=== PATIENT | female | born 1975 | race Caucasian/White ===

== ENCOUNTER 2023-12-14 19:42 | Emergency (ER) | payer BC ==
[~2023-12-14] VITALS: Ht 182.9 cm; Wt 86.9 kg
[2023-12-14 20:37] VITALS: BP 148/113; PULSE 74; RESP 16; TEMP 98.2; O2SAT 100
[2023-12-14 21:34] VITALS: O2SAT 97
[2023-12-14] MEDS: NACL 0.9% 1,000 ML IV ONE (21:56)
[2023-12-14 22:31] LABS: APPEARANCE,URINE CLEAR (CLEAR); BILIRUBIN,URINE NEGATIVE (NEGATIVE); BLOOD, URINE TRACE-I (NEGATIVE); COLOR,URINE YELLOW (YELLOW); LEUKOCYTE ESTERASE ,URINE NEGATIVE (NEGATIVE); NITRITE, URINE NEGATIVE (NEGATIVE); PH,URINE 6.5 (5.0-9.0); PROTEIN,URINE NEGATIVE (NEGATIVE); UGLUCOSE NEGATIVE (NEGATIVE); UROBILINOGEN,URINE 0.2 EU/dL (0.2 - 1)
[2023-12-14] MEDS: KETOROLAC 30 MG/ML VIAL IVP ONE (22:34)
[2023-12-14] MEDS: diphenhydrAMINE 50 MG/ML VIAL IVP ONE (23:42)
[2023-12-14] MEDS: METOCLOPRAMIDE 10 MG/2 ML INJ VIAL IVP ONE (23:42)
[2023-12-14 23:57] VITALS: O2SAT 97
[2023-12-14] MEDS: NACL 0.9% 500 ML IV ONE (23:59)
[2023-12-15 00:03] VITALS: BP 117/72; PULSE 73; RESP 18; TEMP 98.1; O2SAT 97
[2023-12-15 00:45] LABS: BASOPHILS # (AUTO) 0.1 K/uL (0.00-0.22); BASOPHILS % (AUTO) 0.6 % (0.0-2.0); EOSINOPHILS # (AUTO) 0.1 K/uL (0-0.4); EOSINOPHILS % (AUTO) 1.4 % (0.0-4.0); HEMOGLOBIN 14.6 g/dL (12.0-16.0); LYMPHOCYTES % (AUTO) 20.2 % (20.5-51.1); MEAN CORPUSCULAR HEMOGLOBIN 30 pg (27-31); MEAN CORPUSCULAR HGB CONC 34 g/dL (33-37); MEAN CORPUSCULAR VOLUME 88.3 fL (80-94); MONOCYTES # (AUTO) 0.5 K/uL (0.8-1.0); MONOCYTES % (AUTO) 4.5 % (1.7-9.3); NEUTROPHILS # (AUTO) 7.3 K/uL (1.8-7.7); NEUTROPHILS % (AUTO) 73.3 % (42.2-75.2); PLATELET COUNT (AUTO) 285 K/uL (140-450); RED BLOOD CELL COUNT(AUTO) 4.88 MIL/uL (4.20-5.40); RED CELL DISTRIBUTION WIDTH 12.9 % (11.6-13.7)
[2023-12-15 00:56] LABS: ANION GAP 11.7 (8-16); CALCIUM 9.6 mg/dL (8.5-10.1); CARBON DIOXIDE 30.3 mmol/L (21-32); CREATININE 0.7 mg/dL (0.6-1.3)
[2023-12-15 01:02] LABS: ALANINE AMINOTRANSFERASE 21 U/L (12-78); ALKALINE PHOSPHATASE 80 U/L (50-136); ASPARTATE AMINOTRANSFERASE 19 U/L (15-37); BILIRUBIN,DIRECT 0.1 mg/dL (0.0-0.3); TOTAL BILIRUBIN 1.2 mg/dL (0.0-1.0); TOTAL PROTEIN, SERUM 7.1 g/dL (6.4-8.2)
[2023-12-15] MEDS ORDERED: NAPR-337 PO (01:43)
== END 2023-12-15 01:54 | disposition home or self-care (01) ==
LOC: MED 19:42
DX: G44.209 Tension-type headache, unspecified, not intractable (principal); Z79.899 Other long term (current) drug therapy
CPT/HCPCS: 36415; 80048; 80076; 81003; 81025; 84484; 85025; 93005; 96361; 96374; 96375; 99284; J1200; J1885; J2765; J7030